=== PATIENT | female | born 2000 | race Caucasian/White ===

== ENCOUNTER 2021-12-04 08:51 | Inpatient (IN) | payer MEDICAID ==
[~2021-12-04] VITALS: Ht 167.6 cm; Wt 75.3 kg
[2021-12-04] MEDS ORDERED: BUTORPHANOL TARTRATE 2 MG/ML VIAL IV PRN (13:00)
[2021-12-04] MEDS ORDERED: CARBOPROST TROMETHAMINE 250 MCG/ML AMPUL IM PRN (13:00)
[2021-12-04] MEDS ORDERED: METHYLERGONOVINE MALEATE 0.2 MG/ML IM PRN (13:00)
[2021-12-04] MEDS ORDERED: OXYTOCIN 30 UNITS/500ML NS PMX 500 ML IV SCH ×2 (13:00→20:47)
[2021-12-04] MEDS ORDERED: LIDOCAINE HCL 1% 10 MG/ML 10ML VIAL IJ SCH (13:00)
[2021-12-04] MEDS ORDERED: NALOXONE HCL 0.4 MG/ML 1ML VIAL IM PRN (13:00)
[2021-12-04] MEDS ORDERED: ROPIVACAINE HCL/PF EPIDURAL 200 ML EPI SCH (13:30)
[2021-12-04 13:46] LABS: BASOPHILS % 0.4 % (0.0-2.0); EOSINOPHILS % 1.1 % (0.0-5.0); HEMATOCRIT. 34.1 % (36.0-48.0); LYMPHOCYTES % 13.6 % (20.0-50.0); MEAN CORPUSCULAR HEMOGLOBIN 32.8 pg (28.0-32.0); MEAN CORPUSCULAR VOLUME 93.4 fL (81.0-99.0); MEAN PLATELET VOLUME 8.4 fl (7.4-10.4); MONOCYTES % 7.1 % (2.0-8.0); NEUTROPHILS % 77.8 % (40.0-76.0); PLATELET 266 x1000/uL (130-400); RED BLOOD CELL COUNT 3.65 mill/uL (4.2-5.4); RED CELL DISTRIBUTION WIDTH 13.5 % (11.6-14.6)
[2021-12-04 13:54] LABS: CLARITY URINE CLEAR (CLEAR); COLOR URINE DARK YELLOW (YELLOW); KETONES URINE TRACE (NEGATIVE); LEUKOCYTE ESTERASE URINE TRACE (NEGATIVE); NITRITE URINE NEGATIVE (NEGATIVE); OCCULT BLOOD URINE NEGATIVE (NEGATIVE); PROTEIN URINE 1+ (NEGATIVE); SPECIFIC GRAVITY URINE 1.029 (1.005-1.030)
[2021-12-04 13:58] LABS: PARTIAL THROMBOPLASTIN TIME 30.2 sec (23.4-31.0); PROTHROMBIN TIME 10.4 sec (9.6-11.0)
[2021-12-04 14:35] LABS: *AMPHETAMINES SCREEN URINE NEGATIVE (NEGATIVE); *BARBITURATES SCREEN URINE NEGATIVE (NEGATIVE); *BENZODIAZEPINES SCREEN URINE NEGATIVE (NEGATIVE); *COCAINE SCREEN URINE NEGATIVE (NEGATIVE); CANNABINOID URINE SCREEN NEGATIVE (NEGATIVE); METHADONE URINE SCREEN NEGATIVE (NEGATIVE); OPIATES URINE SCREEN NEGATIVE (NEGATIVE); PHENCYCLIDINE URINE SCREEN NEGATIVE (NEGATIVE)
[2021-12-04] MEDS: LACTATED RINGERS 1,000 ML IV SCH ×2 (14:59→19:55)
[2021-12-04 16:15] LABS: HEPATITIS B SURFACE ANTIGEN NEGATIVE
[2021-12-05] MEDS: LACTATED RINGERS 1,000 ML IV SCH ×3 (05:40→12:09)
[2021-12-05] MEDS ORDERED: ROPIVACAINE HCL/PF EPIDURAL 200 ML EPI ONE (11:33)
[2021-12-05] MEDS ORDERED: IBUPROFEN 400MG TABLET PO PRN (21:15)
[2021-12-05] MEDS ORDERED: HEMORRHOIDAL SUPP PR PRN (21:15)
[2021-12-05] MEDS ORDERED: OXYTOCIN 30 UNITS/500ML NS PMX 500 ML IV SCH (21:15)
[2021-12-05] MEDS ORDERED: BISACODYL 10MG SUPP PR PRN (21:15)
[2021-12-05] MEDS ORDERED: BENZOCAINE/LANOLIN/ALOE VERA SPRAY TOP PRN (21:15)
[2021-12-05] MEDS ORDERED: LANOLIN OINT 7GM TUBE TOP PRN (21:15)
[2021-12-05] MEDS ORDERED: GLYCERIN/WITCH HAZEL LEAF MEDICATED PAD TOP PRN (21:15)
[2021-12-05] MEDS ORDERED: ACETAMINOPHEN WITH CODEINE 300/30MG TABLET PO PRN (21:15)
[2021-12-05] MEDS ORDERED: METHYLERGONOVINE MALEATE 0.2 MG/ML IM PRN (21:15)
[2021-12-05] MEDS ORDERED: DIPHENHYDRAMINE 25MG CAPSULE PO PRN (21:15)
[2021-12-05] MEDS ORDERED: IBUPROFEN 800MG TABLET PO PRN (21:15)
[2021-12-05 22:09] LABS: HEMATOCRIT. 37.4 % (36.0-48.0); HEMOGLOBIN. 12.3 g/dL (12.0-16.0); MEAN CORPUSCULAR HEMOGLOBIN 31.5 pg (28.0-32.0); MEAN CORPUSCULAR VOLUME 95.8 fL (81.0-99.0); MEAN PLATELET VOLUME 8.1 fl (7.4-10.4); PLATELET 244 x1000/uL (130-400); RED CELL DISTRIBUTION WIDTH 13.8 % (11.6-14.6)
[2021-12-05 23:20] LABS: PLATELET ESTIMATE NORMAL
[2021-12-06] VITALS: BP 101/51
[2021-12-06 04:22] VITALS: BP 102/60
[2021-12-06 06:43] LABS: BASOPHILS % 0.2 % (0.0-2.0); EOSINOPHILS % 0.3 % (0.0-5.0); HEMATOCRIT. 31.3 % (36.0-48.0); HEMOGLOBIN. 10.5 g/dL (12.0-16.0); LYMPHOCYTES % 10.9 % (20.0-50.0); MEAN CORPUSCULAR HEMOGLOBIN 31.9 pg (28.0-32.0); MEAN CORPUSCULAR VOLUME 95.1 fL (81.0-99.0); MEAN PLATELET VOLUME 7.9 fl (7.4-10.4); MONOCYTES % 9.4 % (2.0-8.0); NEUTROPHILS % 79.2 % (40.0-76.0); PLATELET 236 x1000/uL (130-400); RED BLOOD CELL COUNT 3.29 mill/uL (4.2-5.4); RED CELL DISTRIBUTION WIDTH 13.5 % (11.6-14.6)
[2021-12-06 08:00] VITALS: BP 99/64
[2021-12-06] MEDS: FERROUS SULFATE 325MG TABLET PO SCH (09:08)
[2021-12-06] MEDS: SIMETHICONE 80MG TABLET CHEW PO SCH ×2 (09:08→20:20)
[2021-12-06] MEDS: PRENATAL VIT/FE FUMARATE/FA TABLET PO SCH (09:09)
[2021-12-06 16:00] VITALS: BP 103/67
[2021-12-06 20:00] VITALS: BP 97/52
[2021-12-06] MEDS ORDERED: DOCUSATE SODIUM 100MG CAPSULE PO SCH (21:00)
[2021-12-07 03:55] VITALS: BP 99/50
[2021-12-07] MEDS ORDERED: IBUP-2030 PO (07:36)
[2021-12-07 08:00] VITALS: BP 100/69
[2021-12-07] MEDS: PRENATAL VIT/FE FUMARATE/FA TABLET PO SCH (08:26)
[2021-12-07] MEDS: FERROUS SULFATE 325MG TABLET PO SCH (08:26)
[2021-12-07] MEDS: SIMETHICONE 80MG TABLET CHEW PO SCH (08:26)
== END 2021-12-07 13:50 | disposition home or self-care (01) | DRG 560 ==
LOC: 8 EST A/PP 08:51 → OBSVTOIN 08:51 → 8 EST LDRP 12:00 → 8EST 12-05 23:40
PROVIDERS: ADMIT Obstetrics & Gynecology; ATTEND Obstetrics & Gynecology
PROC: 10D07Z6 Extraction of Products of Conception, Vacuum, Via Natural or Artificial Opening (ICD-10-PCS; principal; 2021-12-05)
PROC: 3E0R3BZ Introduction of Anesthetic Agent into Spinal Canal, Percutaneous Approach (ICD-10-PCS; 2021-12-05)
PROC: 00HU33Z Insertion of Infusion Device into Spinal Canal, Percutaneous Approach (ICD-10-PCS; 2021-12-05)
PROC: 0HQ9XZZ Repair Perineum Skin, External Approach (ICD-10-PCS; 2021-12-05)
PROC: 0W8NXZZ Division of Female Perineum, External Approach (ICD-10-PCS; 2021-12-05)
DX: O41.03X0 Oligohydramnios, third trimester, not applicable or unspecified (principal); Z37.0 Single live birth; O70.0 First degree perineal laceration during delivery; Z20.822 Contact with and (suspected) exposure to COVID-19; Z3A.41 41 weeks gestation of pregnancy
CPT/HCPCS: 36415; 76805; 76818; 80305; 81003; 85025; 86592; 86703; 86762; 86850; 86900; 87340; 87426; 99281; G0378; J0595; J2795; J7120; A4315; J2590